=== PATIENT | male | born 1950 | race Caucasian/White ===

== ENCOUNTER 2018-09-15 14:31 | Inpatient (IN) ==
[2018-09-15] MEDS ORDERED: MoRPHine SULFATE 4 MG/ML 1 ML CARP\\VIAL IV STA ×2 (15:18→18:01)
[2018-09-15] MEDS ORDERED: SODIUM CHLORIDE 0.9% 1000ML 2,000 ML IV ONE (15:18)
[2018-09-15] MEDS ORDERED: ONDANSETRON INJ 2 MG/ML 2 ML VIAL IV STA ×2 (15:18→18:01)
[2018-09-15 15:55] LABS: Appearance Urine Clear (Clear); Bilirubin Urine Negative (Negative); Blood Urine Negative (Negative); Color Urine Yellow; Glucose Urine UA Negative (Negative); Ketones Urine Negative (Negative); Leukocyte Esterase Urine Negative (Negative); Nitrite Urine Negative (Negative); Protein Urine Negative (Negative); Specific Gravity Urine 1.012 (1.000-1.030); Urobilinogen Urine Negative (Negative); pH Urine 5.5 (4.5-7.5)
[2018-09-15 15:55] LABS: Basophils # (auto) 0.01 K/uL (0-0.2); Basophils % (auto) 0.1 %; Eosinophils # (auto) 0.11 K/uL (0-0.5); Eosinophils % (auto) 1.1 %; Hematocrit (blood only) 33.9 % (42-52); Hemoglobin 11.8 g/dL (14.0-18.0); Immature Granulocytes # (auto) 0.03 K/uL (0.00-0.02); Immature Granulocytes % (auto) 0.3 %; Lymphocytes % (auto) 12.5 %; Mean Corpuscular Hgb Conc 34.8 g/dL (32-36); Mean Corpuscular Volume 90.4 fL (80-100); Mean Platelet Volume 8.9 fL (7.4-10.4); Monocytes # (auto) 0.98 K/uL (0.11-0.59); Monocytes % (auto) 9.5 %; Neutrophils # (auto) 7.94 K/uL (1.4-6.5); Neutrophils % (auto) 76.5 %; Platelet Count 318 K/uL (130-400); RDW Coefficient of Variation 12.6 % (11.5-14.5); RDW Standard Deviation 41.8 fL (36.4-46.3); Red Blood Count 3.75 M/uL (4.7-6.1); White Blood Count 10.37 K/uL (4.8-10.8)
[2018-09-15 16:16] LABS: Albumin Globulin Ratio 0.7 (0.9-2); Albumin Level 3.4 gm/dl (3.4-5.0); Bilirubin,Total 1.1 mg/dl (0.2-1); Est GFR (African American) 40.6; Globulin 4.8 gm/dl (2.5-4.0); Total Protein 8.2 gm/dl (6.4-8.2)
--- NOTE | 2018-09-15 16:30 | Ultrasound Report ---
US renal/blad retro comp HISTORY: Nephrocalcinosis kidney stone COMPARISON: None. FINDINGS: Right kidney: Maximum dimension 13 cm. No evidence for hydronephrosis. Normal corticomedullary differ entiation and cortical thickness. Left kidney: Moderate left renal hydronephrosis and hydroureter. Possible 5 mm calculus distal left ureter. Normal corticomedullary differentiation and cortical thickness. Bladder: No bladder wall thickening. The bilateral ureteral jets were identified. IMPRESSION: 1. Moderate left renal hydronephrosis. 2. Possible 5 mm ureteral calculus distal left ureter. This possibly is at the left ureteral vesicle junction. The above report was generated using voice recognition software. It may contain grammatical, syntax or spelling errors. Electronically signed by: Richard Méndez M.D. 09/15/2018 4:29 PM
--- NOTE | 2018-09-15 16:33 | XRay Report ---
XR KUB/Abdomen 1 view CLINICAL HISTORY: l flank pain COMPARISON STUDY: No previous studies for comparison. FINDINGS: The soft tissues, psoas shadows, renal outlines and intestinal gas pattern appear normal. T here is no evidence for bowel obstruction. No abnormal abdominal calcifications are seen. IMPRESSION: Normal study. The above report was generated using voice recognition software. It may contain grammatical, syntax or spelling errors. Electronically signed by: Richard Méndez M.D. 09/15/2018 4:32 PM
[2018-09-15] MEDS ORDERED: CEFEPIME 1,000 MG in SYRINGE 0 ML IV STA (16:58)
--- NOTE | 2018-09-15 17:56 | History & Physical Report ---
Date of Service September 15, 2018 Assessment & Plan (1) Renal colic: Distal left ureter stone, 5 mm. Parenteral pain control and antiemetics as needed. Urology consultation Present on Admission?: Yes (2) Hydronephrosis: Left-sided secondary to distal left ureter stone. Urology consultation Present on Admission?: Yes (3) Acute kidney injury: Hold metformin. Hold lisinopril. Administer IV fluids. Monitor urine output. Serial lab studies Present on Admission?: Yes (4) Type 2 diabetes mellitus: Hold metformin. Diabetic diet. Sliding scale insulin coverage Present on Admission?: Yes (5) Hypertension: Hold lisinopril. Continue amlodipine and metoprolol. Present on Admission?: Yes (6) DVT prophylaxis: Lovenox subcu Present on Admission?: Yes History of Present Illness Chief Complaint: Left costovertebral angle tenderness Primary Care Provider: Lyudmila Cano MD 68-year-old male with a history of hypertension and hyperlipidemia. 15 years ago he had a kidney stone that felt like this. He has had a left discomfort for nearly a week and was evaluated previously at [facility] several days ago. His symptoms have persisted and worsened and he comes to the [facility] ED for evaluation. Renal ultrasound reveals moderate left hydronephrosis and he has evidence of a distal left ureter stone with acute kidney injury. Creatinine 1.9. The ED physician has contacted urology for consultation. He will be placed on intravenous Unasyn due to the obstruction and hydronephrosis. He does not appear to be septic. Allergies Allergy/AdvReac Type Severity Reaction Status Date / Time ciprofloxacin [From Cipro] Allergy Intermediate Hives Verified 09/15/18 15:25 Home Medications Home Medications Medication Instructions Recorded Confirmed Type amlodipine 10 mg PO QAM 09/15/18 09/15/18 History ascorbic acid (vitamin C) [Vitamin 500 mg PO QAM 09/15/18 09/15/18 History C] atorvastatin 20 mg PO 2XWK 09/15/18 09/15/18 History furosemide [Lasix] 10 mg PO QAM 09/15/18 09/15/18 History lisinopril 10 mg PO QAM 09/15/18 09/15/18 History metformin 500 mg PO QAM 09/15/18 09/15/18 History metoprolol tartrate 100 mg PO BIDM 09/15/18 09/15/18 History terazosin 2 mg PO QAM 09/15/18 09/15/18 History terazosin 4 mg PO HS 09/15/18 09/15/18 History Past Med/Surg History Medical History Hypertension (Chronic) Type 2 diabetes mellitus (Chronic) Acute kidney injury (Acute) Kidney stone No pertinent family history Surgical History No pertinent past surgical history Family History Other No pertinent family history Social History Preferred Language: Faroese Communication Ability: Effective Visual Impairment: No Limitations Hearing Ability: Normal marital status: marital status details: Current Living Situation: Family Feels Safe at Home: Yes Smoking Status: Never smoker Review of Systems Review of Systems: Constitutional-no fever or chills ENT-no blurred vision, no double vision, no epistaxis, no sore throat Respiratory-no cough, no wheezing, no shortness of breath Cardiac-no palpitations, no chest pain, no syncope GI-no nausea, vomiting, diarrhea, melena, hematochezia -no urinary retention, no urinary incontinence, no dysuria, no hematuria Musculoskeletal-no joint pain. Left costovertebral angle tenderness Skin-no bruising, no rashes, no pruritus Neuro-no isolated weakness, no paresthesia, no weakness Psych-no depression, no anxiety Physical Exam Physical Exam: General-alert and oriented x3, no fevers, no chills HEENT-head atraumatic and normocephalic, TMs intact bilaterally, pupils equal and reactive to light, extraocular muscles intact Neck-no lymphadenopathy or thyromegaly, trachea midline Chest-clear to auscultation percussion. No rales wheezing or rhonchi Cardiac-regular rate and rhythm, normal S1 and S2, no murmurs Abdomen-normal bowel sounds, nontender, no hepatosplenomegaly Musculoskeletaltenderness in the left costovertebral angle area Extremities-no cyanosis, clubbing, or edema Neuro-cranial nerves II through XII intact, motor and sensory function within normal limits, strength symmetrical 5/5, no focal deficits Psych-normal affect, normal mood Results & Data Vital Signs (Past 12 Hours) Vital Signs Temp Pulse Pulse Resp BP BP Pulse Ox 09/15/18 16:05 86 22 162/85 H 95 09/15/18 15:50 98 09/15/18 14:38 36.8 C 83 18 155/80 H 95 Laboratory Results 09/15/18 15:48 09/15/18 15:48 PG Care Time/CCT Total # of Minutes Spent Total Time Spent with Patient: Total time spent is greater than 50% in coord ination of care (as documented) at patient's floor/unit and/or counseling patient: (1) Hydronephrosis Hydronephrosis type: unspecified Qualified Code(s): N13.30 - Unspecified hydronephrosis
--- NOTE | 2018-09-15 18:16 | Emergency Department Note ---
Entered by Rebecca Tellez acting as a scribe for History of Present Illness General Chief complaint: Kidney Stone Stated complaint: KIDNEY STONE Source: patient Mode of arrival: ambulatory Limitations: no limitations History of Present Illness Onset (ago): day(s) 6 Location: left (flank) Severity: severe and similar to prior episodes Pain Consistency: + constant Maximum Pain Intensity: 5 Quality: + other (kidney stone) Associated symptoms: + other (The patient complains of left flank pain. The patient denies abdominal pain.); no chest pain and no fever/chills (The patient denies fevers. ) The patient is a 68 year old male with a history of kidney stone, diabetes and hypertension who presents to the ED with complaints of a constant kidney stone that onset 6 days ago. The patient presents with his . The patient states t hat he has was diagnosed via CT with a left sided 3 mm kidney stone in [place] last week. The patient complains of severe left flank pain that is similar to his past kidney stone. The patient denies fevers over 104 degrees, abdominal pain, and chest pain. He notes that he called urology today and was told that they are not accepting new patients. He reports that he only has 1 pain pill left. He notes that the pain has worsened slightly today. No other exacerbating or remitting factors. Home Medications Home Medications Medication Instructions Recorded Confirmed Type amlodipine 10 mg PO QAM 09/15/18 09/15/18 History ascorbic acid (vitamin C) [Vitamin 500 mg PO QAM 09/15/18 09/15/18 History C] atorvastatin 20 mg PO 2XWK 09/15/18 09/15/18 History furosemide [Lasix] 10 mg PO QAM 09/15/18 09/15/18 History lisinopril 10 mg PO QAM 09/15/18 09/15/18 History metformin 500 mg PO QAM 09/15/18 09/15/18 History metoprolol tartrate 100 mg PO BIDM 09/15/18 09/15/18 History terazosin 2 mg PO QAM 09/15/18 09/15/18 History terazosin 4 mg PO HS 09/15/18 09/15/18 History Allergies Allergy/AdvReac Type Severity Reaction Status Date / Time ciprofloxacin [From Cipro] Allergy Intermediate Hives Verified 09/15/18 15:25 Past Med/Surg History Medical History Hypertension (Chronic) Type 2 diabetes mellitus (Chronic) Acute kidney injury (Acute) Kidney stone No pertinent family history Surgical History No pertinent past surgical history (Acute) Family History Other No pertinent family history Social History Preferred Language: [place] Communication Ability: Effective Visual Impairment: No Limitations Hearing Ability: Normal marital status: marital status details: Current Living Situation: Family Feels Safe at Home: Yes Smoking Status: Never smoker Review of Systems See HPI for pertinent positives & negatives. and A total of 10 systems reviewed and were otherwise negative Physical Exam Vital Signs Vital Signs - 24 hr 09/15/18 14:38 09/15/18 15:50 09/15/18 16:05 Temperature 36.8 C Temperature Source Oral Sepsis Recent Fever Within 48 Hours No Sepsis New/Unexplained Change in Mental Status No Sepsis Action Taken by Nursing No Action Required Pulse Rate 83 Pulse Rate [Finger] 86 Respiratory Rate 18 22 Respiratory Effort / Characteristics Non-Labored Respiratory Depth Normal Blood Pressure 155/80 H Blood Pressure [Left Arm] 162/85 H Blood Pressure Mean 105 Blood Pressure Mean [Left Arm] 110 Pulse Oximetry 95 98 95 Oxygen Delivery Method Room Air Room Air Room Air GENERAL: Lying in bed, mild distress, holding left flank. EYE EXAM: Normal conjunctiva. OROPHARYNX: no exudate, no erythema, lips, buccal mucosa, and tongue normal and mucous membranes are moist NECK: supple, no nuchal rigidity, no adenopathy, non-tender LUNGS: Clear to auscultation. Normal chest wall mechanics HEART: no murmurs, S1 normal and S2 normal ABDOMEN: abdomen soft, minimal tenderness to left flank, normo-active bowel sounds, no masses, no rebound or guarding. BACK: Back is symmetrical on inspection and there is no deformity, no midline tenderness, no CVA tenderness. SKIN: no rashes and no bruising UPPER EXTREMITIES: upper extremities are grossly normal. LOWER EXTREMITIES: No pitting edema. NEURO EXAM: Normal sensorium, cranial nerves II-XII grossly intact, normal speech, no gross weakness of arms, no gross weakness of legs. Course 1506: Past medical records reviewed. The patient was evaluated in room C01B. A complete history and physical examination was performed. 1703: Call out to urology. 1717: I reviewed the patient's case with Dr. Albin Conner [facility]. 1723: Upon reevaluation, the patient is feeling better. I discussed the findings and the treatment plan with the patient. He verbalizes agreement and understanding. He was discharged home. 1730: I reviewed the patient's case with Dr. Jasmin Kim - [facility]. He will evaluate the patient for further management. Consultations Consultation #1: 1717: I reviewed the patient's case with Dr. [facility]bin [facility]. Time: 17:17 Consultation #2: 1730: I reviewed the patient's case with Dr. Jasmin Kim - [facility]. He will evaluate the patient for further management. Time: 17:30 Administered Medications Discontinued Medications Sodium Chloride (Nss 1000ml) 2,000 mls @ 999 mls/hr IV .Q2H1M ONE Stop: 09/15/18 17:18 Last Admin: 09/15/18 16:01 Dose: 999 mls/hr Documented by: [id number] Morphine Sulfate (Morphine Sulfate) 4 mg IV NOW STA Stop: 09/15/18 15:19 Last Admin: 09/15/18 16:00 Dose: 4 mg Documented by: [id number] Ondansetron HCl (Zofran) 4 mg IV NOW STA Stop: 09/15/18 15:19 Last Admin: 09/15/18 16:00 Dose: 4 mg Documented by: [id number] Medical Decision Making Differential Diagnosis Differential diagnosis Renal colic, appendicitis, diverticulitis, mesenteric ischemia, aortic pathology, infections, inflammatory bowel disease, PUD, biliary pathology, UTI, as well as others were entertained. Medical Records Attestation: I reviewed the patient's medical records. Home Medications Current Medication List: was personally reviewed by me Laboratory Data Attestation: I reviewed the patient's lab results. Result diagrams: 09/15/18 15:48 09/15/18 15:48 Lab Results 09/15/18 09/15/18 09/15/18 Range/Units 15:33 15:48 15:48 WBC 10.37 (4.8-10.8) K/uL RBC 3.75 L (4.7-6.1) M/uL Hgb 11.8 L (14.0-18.0) g/dL Hct 33.9 L (42-52) % MCV 90.4 (80-100) fL MCH 31.5 (25-34) pg MCHC 34.8 (32-36) g/dL RDW Std Deviation 41.8 (36.4-46.3) fL RDW Coeff of [place] 12.6 (11.5-14.5) % Plt Count 318 (130-400) K/uL MPV 8.9 (7.4-10.4) fL Immature Gran % (Auto) 0.3 % Neut % (Auto) 76.5 % Lymph % (Auto) 12.5 % [place] % (Auto) 9.5 % Eos % (Auto) 1.1 % Baso % (Auto) 0.1 % Immature Gran # (Auto) 0.03 H (0.00-0.02) K/uL Neut # (Auto) 7.94 H (1.4-6.5) K/uL Lymph # (Auto) 1.30 (1.2-3.4) K/uL [place] # (Auto) 0.98 H (0.11-0.59) K/uL Eos # (Auto) 0.11 (0-0.5) K/uL Baso # (Auto) 0.01 (0-0.2) K/uL Sodium 138 (136-145) mmol/L Potassium (3.5-5.1) mmol/L Chloride 102 (98-107) mmol/L Carbon Dioxide 27 (21-32) mmol/L Anion Gap 9.0 (3-11) BUN 25 H (7-18) mg/dl Creatinine 1.92 H (0.6-1.4) mg/dl Est Cr Clr Drug Dosing 42.0 ml/min Est GFR ( Amer) 40.6 Est GFR (Non-Af Amer) 35.0 BUN/Creatinine Ratio 13.0 (10-20) Glucose 108 H (70-99) mg/dl Calcium 9.0 (8.5-10.1) mg/dl Total Bilirubin 1.1 H (0.2-1) mg/dl AST (15-37) U/L ALT 42 (12-78) U/L Alkaline Phosphatase 89 (45-117) U/L Total Protein 8.2 (6.4-8.2) gm/dl Albumin 3.4 (3.4-5.0) gm/dl Globulin 4.8 H (2.5-4.0) gm/dl Albumin/Globulin Ratio 0.7 L (0.9-2) Lipase 66 L (73-393) U/L Urine Color Yellow Urine Appearance Clear (Clear) Urine pH 5.5 (4.5-7.5) Ur Specific [place] 1.012 (1.000-1.030) Urine Protein Negative (Negative) Urine Glucose (UA) Negative (Negative) Urine Ketones Negative (Negative) Urine Blood Negative (Negative) Urine Nitrite Negative (Negative) Urine Bilirubin Negative (Negative) Urine Urobilinogen Negative (Negative) Ur Leukocyte Esterase Negative (Negative) Imaging Data Radiologist's Impression: Radiology results as stated below per my review and the radiologist's interpretation: US renal/blad retro comp HISTORY: Nephrocalcinosis kidney stone COMPARISON: None. FINDINGS: Right kidney: Maximum dimension 13 cm. No evidence for hydronephrosis. Normal corticomedullary differentiation and cortical thickness. Left kidney: Moderate left renal hydronephrosis and hydroureter. Possible 5 mm calculus distal left ureter. Normal corticomedullary differentiation and cortical thickness. Bladder: No bladder wall thickening. The bilateral ureteral jets were identifi ed. IMPRESSION: 1. Moderate left renal hydronephrosis. 2. Possible 5 mm ureteral calculus distal left ureter. This possibly is at the left ureteral vesicle junction. The above report was generated using voice recognition software. It may contain grammatical, syntax or spelling errors. Electronically signed by: Richard Méndez M.D. 09/15/2018 4:29 PM Dictated: 09/15/18 1627 Transcribed: 09/15/18 1627 XR KUB/Abdomen 1 view CLINICAL HISTORY: l flank pain COMPARISON STUDY: No previous studies for comparison. FINDINGS: The soft tissues, psoas shadows, renal outlines and intestinal gas pattern appear normal. There is no evidence for bowel obstruction. No abnormal abdominal calcifications are seen. IMPRESSION: Normal study. The above report was generated using voice recognition software. It may contain grammatical, syntax or spelling errors. Electronically signed by: Richard Méndez M.D. 09/15/2018 4:32 PM Dictated: 09/15/18 1631 Transcribed: 09/15/18 1631 Blood Pressure Blood Pressure Findings: Elevated blood pressure Blood Pressure Disposition: further management by hospitalist MIGUEL Narrative Patient is a 68-year-old male who presents the ER with past medical history of hypertension diabetes for left flank pain. Upon review of his outside records that shows he has a 3 mm distal left ureteral stone with fair amount of hydronephrosis. He notes that his pain has been slightly worsening. He has been unable to eat and drink much for the past couple days secondary to this. Vitals show that he is slightly hypertensive. IV was established blood work was obtained. Labs show no significant leukocytosis but mild anemia 11,000. BMP with a BUN of 25 and a creatinine of 1.92 up from a baseline of 1.0-1.1. Last creatinine 6 days ago was 1.1. Do favor the elevation in BUN and creatinine is likely secondary duration. T bili was slightly elevated 1.1. LFTs and lipase were unremarkable. UA without infection. Ultrasound shows a left distal ureteral stone with moderate amount of hydronephrosis measuring about 5 mm. KUB was reviewed. Patient was given IV fluids and IV narcotics along with IV Zofran. Discussed with urology as creatinine has increased from baseline of 1.0-1.1 to now 1.92. After discussion with patient felt was reasonable to watch him overnight. Discussed with the hospitalist and patient will be observed for acute kidney injury likely secondary to Naprosyn which was prescribed from [place] in combination with dehydration 2/2 renal colic. Impression & Plan Hydronephrosis, Renal colic, Type 2 diabetes mellitus, No pertinent past surgical history Discharge Plan Visit Data Chief Complaint: Kidney Stone Stated Complaint: KIDNEY STONE ED Provider: Juan M Anderson Discharge Problem: Hydronephrosis, Renal colic, Type 2 diabetes mellitus, No pertinent past surgical history Patient Disposition: Being Evaluated by Hospitalist Forms Stand Alone Forms: My [facility] Prescriptions Prescriptions: No Action metformin 500 mg Tablet 500 mg PO QAM RF: 0 atorvastatin 20 mg Tablet 20 mg PO 2XWK RF: 0 terazosin 2 mg Capsule 2 mg PO QAM RF: 0 terazosin 2 mg Capsule 4 mg PO HS RF: 0 amlodipine 10 mg Tablet 10 mg PO QAM RF: 0 lisinopril 10 mg Tablet 10 mg PO QAM RF: 0 ascorbic acid (vitamin C) [Vitamin C] 500 mg Tablet,Chewable 500 mg PO QAM RF: 0 metoprolol tartrate 50 mg Tablet 100 mg PO BIDM RF: 0 furosemide [Lasix] 20 mg Tablet 10 mg PO QAM RF: 0 Referrals Referrals: Lyudmila Cano MD [Primary Care Provider] - The scribe's documentation has been prepared under my direction and personally reviewed by me in its entirety. I confirm that the note above accurately reflects all work, treatment, procedures, and medical decision making performed by me.
[2018-09-15] MEDS ORDERED: ACETAMINOPHEN 325 MG TAB PO PRN (20:17)
[2018-09-15] MEDS ORDERED: ALUMINUM/MAGNESIUM SUSP 30 ML UDC PO PRN (20:17)
[2018-09-15] MEDS ORDERED: MoRPHine SULFATE 2 MG/ML CARP IV PRN (20:17)
[2018-09-15] MEDS ORDERED: ONDANSETRON INJ 2 MG/ML 2 ML VIAL IV PRN (20:17)
[2018-09-15] MEDS: SODIUM CHLORIDE 0.9% 1000ML 1,000 ML IV SCH (20:25)
[2018-09-15] MEDS ORDERED: GLUCAGON FOR INJ 1 MG VIAL IM PRN (21:00)
[2018-09-15] MEDS ORDERED: GLUCOSE 10 TABS/TUBE PO PRN (21:00)
[2018-09-15] MEDS ORDERED: DEXTROSE 50% 50 ML SYRINGE IV PRN (21:00)
[2018-09-15] MEDS ORDERED: CARBOHYDRATES FOR HYPOGLYCEMIA PO PRN (21:00)
[2018-09-15] MEDS ORDERED: GLUCOSE 40% GEL 15 GM TUBE PO PRN (21:00)
[2018-09-15 21:21] LABS: Prothrombin Time 10.3 Seconds (9.0-12.0)
[2018-09-15] MEDS ORDERED: ENOXAPARIN INJ 40 MG/0.4 ML SYR SQ SCH (22:00)
[2018-09-15] MEDS: TERAZOSIN HCL 1 MG CAP PO SCH (22:04)
[2018-09-15] MEDS: TAMSULOSIN HCL 0.4 MG CAP PO SCH (22:04)
[2018-09-15] MEDS: AMPICILLIN/SULBACTAM SOD 1,500 MG in 0.9 % SODIUM CHLORIDE 100 ML IV SCH (22:16)
[2018-09-15] MEDS: INSULIN ASPART 100 UNITS/ML 3 ML PEN SC SCH (22:24)
[2018-09-15] MEDS: METOPROLOL TARTRATE 50 MG TAB PO SCH (22:33)
[2018-09-16 00:20] LABS: Appearance Urine Clear (Clear); Bilirubin Urine Negative (Negative); Blood Urine Negative (Negative); Color Urine Yellow; Glucose Urine UA Negative (Negative); Ketones Urine Negative (Negative); Leukocyte Esterase Urine Negative (Negative); Nitrite Urine Negative (Negative); Protein Urine Negative (Negative); Specific Gravity Urine 1.016 (1.000-1.030); Urobilinogen Urine Negative (Negative)
[2018-09-16] MEDS: AMPICILLIN/SULBACTAM SOD 1,500 MG in 0.9 % SODIUM CHLORIDE 100 ML IV SCH ×2 (03:41→10:13)
[2018-09-16] MEDS: SODIUM CHLORIDE 0.9% 1000ML 1,000 ML IV SCH ×3 (05:35→21:40)
[2018-09-16] MEDS ORDERED: MoRPHine SULFATE 2 MG/ML CARP IV STA (06:18)
[2018-09-16 07:38] LABS: Basophils # (auto) 0.03 K/uL (0-0.2); Basophils % (auto) 0.3 %; Eosinophils # (auto) 0.15 K/uL (0-0.5); Eosinophils % (auto) 1.6 %; Hematocrit (blood only) 30.2 % (42-52); Hemoglobin 10.3 g/dL (14.0-18.0); Immature Granulocytes # (auto) 0.04 K/uL (0.00-0.02); Immature Granulocytes % (auto) 0.4 %; Lymphocytes # (auto) 1.66 K/uL (1.2-3.4); Lymphocytes % (auto) 17.9 %; Mean Corpuscular Hgb Conc 34.1 g/dL (32-36); Mean Corpuscular Volume 90.7 fL (80-100); Mean Platelet Volume 8.7 fL (7.4-10.4); Monocytes % (auto) 8.6 %; Neutrophils # (auto) 6.59 K/uL (1.4-6.5); Neutrophils % (auto) 71.2 %; Platelet Count 277 K/uL (130-400); RDW Coefficient of Variation 12.9 % (11.5-14.5); RDW Standard Deviation 42.8 fL (36.4-46.3); Red Blood Count 3.33 M/uL (4.7-6.1); White Blood Count 9.27 K/uL (4.8-10.8)
[2018-09-16 08:17] LABS: BUN Creatinine Ratio 15.1 (10-20); Creatinine Clr Calc Pharmacy 45.4 ml/min; Est GFR (African American) 43.8; Est GFR (Non-African American) 37.8
[2018-09-16] MEDS ORDERED: MoRPHine SULFATE 4 MG/ML 1 ML CARP\\VIAL IV PRN (08:31)
--- NOTE | 2018-09-16 08:31 | Urology Consultation ---
Date of Consultation September 16, 2018 Assessment & Plan (1) Hydronephrosis: (2) Renal colic: 68yo M with obstructing 3mm left distal ureteral stone, moderate hydro. First noted on CT performed in [place] on 09/09. Repeat Renal US does show progression of hydronephrosis, stone noted near UVJ. NO visibility on KUB. Cr elevated to 1.91 upon admission, improved slightly to 1.8 with hydration. Pain currently controlled with IV pain control, rating 5/10 now. Will increase pain control regimen, currently has morphine 2mg available q8h - will increase to 4mg q4h PRN, with PO options as well. Avoid toradol due to elevated Cr, slightly improved today with hydration. Nontoxic, afebrile. Given regular diet by primary team, discussed concern with this should pt develop worsening symptoms throughout the day -possess risk for aspiration. Pt understands, feels he can continue max medical therapy today then reassess in AM. Continue IVFs, flomax. Strain all urine. Okay to convert to prophylactic PO abx per primary team . NPO at IN for possible surgical intervention in AM. Dr. Kamara made aware and agreeable to current plan of care. Please contact our service urgently if patient develops fever >101F, intractable pain or vomiting. Thank you for allowing us to participate in the acute care of Mr. Aguilar. We will continue to follow with primary team. History of Present Illness Reason for Consultation: obstructing stone, renal colic Requesting Physician: Dr. Sue Attending Physician: Grace Sue MD History of Present Illness 68yo M with hx DMII and HTN, presents to [facility] for ongoing Left flank pain. Diagnosed with 3mm left distal ureteral stone on 09/09 by [facility]. Pt sent home with flomax and pain control. Describing pain as left flank, radiating to abdomen, "burning sensation". No LUTS, no hematuria. Denies fever/chills/n/v. He did experience extreme nausea 1-2days prior to admission. CT A/P report from [facility] reviewed on 09/09, images not available. States he has distal left ureteral stone, mild hydro; few nonobstructing right and left renal calculi, largest calculi noted within superior pole of right kidney, ~5mm. Most recent stone prior this was 15 years ago, spontaneous passage. Unsure of laterality. Was unable to collect for analysis. Allergies Allergy/AdvReac Type Severity Reaction Status Date / Time ciprofloxacin [From Cipro] Allergy Intermediate Hives Verified 09/15/18 15:25 Home Medications Home Medications Medication Instructions Recorded Confirmed Type amlodipine 10 mg PO QAM 09/15/18 09/15/18 History ascorbic acid (vitamin C) [Vitamin 500 mg PO QAM 09/15/18 09/15/18 History C] atorvastatin 20 mg PO 2XWK 09/15/18 09/15/18 History furosemide [Lasix] 10 mg PO QAM 09/15/18 09/15/18 History lisinopril 10 mg PO QAM 09/15/18 09/15/18 History metformin 500 mg PO QAM 09/15/18 09/15/18 History metoprolol tartrate 100 mg PO BIDM 09/15/18 09/15/18 History terazosin 2 mg PO QAM 09/15/18 09/15/18 History terazosin 4 mg PO HS 09/15/18 09/15/18 History Patient History Medical History Hypertension (Chronic) Type 2 diabetes mellitus (Chronic) Acute kidney injury (Acute) Kidney stone No pertinent family history Surgical History No pertinent past surgical history (Acute) Family History Other No pertinent family history Social History Preferred Language: Mongolian Communication Ability: Effective Visual Impairment: No Limitations Hearing Ability: Normal Jewel Grinder Required: No Beliefs That Will Affect Care: Buddhism Buddhism Beliefs: Jehova's Witness marital status: marital status details: Current Living Situation: Spouse and Family Other Information That Helps Us Care for You: Yes (Sx rt rotator cuff (01/16). Sx left meniscus (2010)) Feels Safe at Home: Yes Safety Concerns: Feels Safe At This Time Smoking Status: Never smoker Hx Alcohol Use: Yes Alcohol type: beer Hx Substance Use: No Review of Systems Constitutional: no fever and no chills Eyes: no problem reported Ear, Nose, Mouth, Throat: no ear pain Respiratory: no cough Cardiovascular: no chest pain Gastrointestinal: no abdominal pain, no nausea and no vomiting Genitourinary: no dysuria, no urinary hesitancy, no nocturia and no hematuria Musculoskeletal: no myalgia Integumentary: no acne and no lesions Neurologic: no paralysis and no numbness Psychiatric: no hopelessness Endocrine: no polydipsia and no polyphagia Hematologic / Lymphatic: no coagulopathy Allergy / Immunological: no lip swelling Physical Exam Constitutional: no acute distress Eyes: no nystagmus ENMT: Ears: no TM abnormality Neck: trachea midline Respiratory: no respiratory distress and does not use accessory muscles Cardiovascular: Vessels: no JVD Chest (Breasts): Chest: no mass Gastrointestinal (Abdomen): Inspection/Auscultation: abdomen not distended and no abdominal edema Percussion/Palpation: abdomen soft; abdomen nontender Musculoskeletal: Head/Neck/Chest: normocephalic and head atraumatic Skin: no rashes and no ulcers Neurologic: CN's II-XI intact bilaterally Psychiatric: Orientation: alert and oriented x 3 Genitourinary: + CVA tenderness (left side) Lymphatic: no cervical or axillary lymphadenopathy Results & Data Vital Signs (Past 12 Hours) Vital Signs Temp Pulse Pulse Resp BP Pulse Ox 09/16/18 07:51 37.1 C 65 17 146/78 H 95 09/15/18 22:50 37.0 C 75 16 153/77 H 91 Laboratory Results Laboratory Results - last 48 hr 09/15/18 09/15/18 09/15/18 15:33 15:48 15:48 WBC 10.37 RBC 3.75 L Hgb 11.8 L Hct 33.9 L MCV 90.4 MCH 31.5 MCHC 34.8 RDW Std Deviation 41.8 RDW Coeff of Alba 12.6 Plt Count 318 MPV 8.9 Immature Gran % (Auto) 0.3 Neut % (Auto) 76.5 Lymph % (Auto) 12.5 [place] % (Auto) 9.5 Eos % (Auto) 1.1 Baso % (Auto) 0.1 Immature Gran # (Auto) 0.03 H Neut # (Auto) 7.94 H Lymph # (Auto) 1.30 [place] # (Auto) 0.98 H Eos # (Auto) 0.11 Baso # (Auto) 0.01 PT INR Sodium 138 Potassium Chloride 102 Carbon Dioxide 27 Anion Gap 9.0 BUN 25 H Creatinine 1.92 H Est Cr Clr Drug Dosing 42.0 Est GFR ( Amer) 40.6 Est GFR (Non-Af Amer) 35.0 BUN/Creatinine Ratio 13.0 Glucose 108 H POC Glucose Calcium 9.0 Total Bilirubin 1.1 H AST ALT 42 Alkaline Phosphatase 89 Total Protein 8.2 Albumin 3.4 Globulin 4.8 H Albumin/Globulin Ratio 0.7 L Lipase 66 L Urine Color Yellow Urine Appearance Clear Urine pH 5.5 Ur Specific [place] 1.012 Urine Protein Negative Urine Glucose (UA) Negative Urine Ketones Negative Urine Blood Negative Urine Nitrite Negative Urine Bilirubin Negative Urine Urobilinogen Negative Ur Leukocyte Esterase Negative 09/15/18 09/15/18 09/15/18 15:48 20:19 23:50 WBC RBC Hgb Hct MCV MCH MCHC RDW Std Deviation RDW Coeff of [place]ba Plt Count MPV Immature Gran % (Auto) Neut % (Auto) Lymph % (Auto) [place] % (Auto) Eos % (Auto) Baso % (Auto) Immature Gran # (Auto) Neut # (Auto) Lymph # (Auto) [place] # (Auto) Eos # (Auto) Baso # (Auto) PT 10.3 INR 1.0 Sodium Potassium Chloride Carbon Dioxide Anion Gap BUN Creatinine Est Cr Clr Drug Dosing Est GFR ( Amer) Est GFR (Non-Af Amer) BUN/Creatinine Ratio Glucose POC Glucose 151 H Calcium Total Bilirubin AST ALT Alkaline Phosphatase Total Protein Albumin Globulin Albumin/Globulin Ratio Lipase Urine Color Yellow Urine Appearance Clear Urine pH 5.0 Ur Specific [place] 1.016 Urine Protein Negative Urine Glucose (UA) Negative Urine Ketones Negative Urine Blood Negative Urine Nitrite Negative Urine Bilirubin Negative Urine Urobilinogen Negative Ur Leukocyte Esterase Negative 09/16/18 09/16/18 09/16/18 07:03 07:03 08:27 WBC 9.27 RBC 3.33 L Hgb 10.3 L Hct 30.2 L MCV 90.7 MCH 30.9 MCHC 34.1 RDW Std Deviation 42.8 RDW Coeff of Alba 12.9 Plt Count 277 MPV 8.7 Immature Gran % (Auto) 0.4 Neut % (Auto) 71.2 Lymph % (Auto) 17.9 [place] % (Auto) 8.6 Eos % (Auto) 1.6 Baso % (Auto) 0.3 Immature Gran # (Auto) 0.04 H Neut # (Auto) 6.59 H Lymph # (Auto) 1.66 [place] # (Auto) 0.80 H Eos # (Auto) 0.15 Baso # (Auto) 0.03 PT INR Sodium 138 Potassium 4.0 Chloride 105 Carbon Dioxide 27 Anion Gap 6.0 BUN 27 H Creatinine 1.80 H Est Cr Clr Drug Dosing 45.4 Est GFR ( Amer) 43.8 Est GFR (Non-Af Amer) 37.8 BUN/Creatinine Ratio 15.1 Glucose 95 POC Glucose 98 Calcium 8.0 L Total Bilirubin AST ALT Alkaline Phosphatase Total Protein Albumin Globulin Albumin/Globulin Ratio Lipase Urine Color Urine Appearance Urine pH Ur Specific [place] Urine Protein Urine Glucose (UA) Urine Ketones Urine Blood Urine Nitrite Urine Bilirubin Urine Urobilinogen Ur Leukocyte Esterase (1) Hydronephrosis Hydronephrosis type: unspecified Qualified Code(s): N13.30 - Unspecified hydronephrosis
[2018-09-16] MEDS ORDERED: MoRPHine SULFATE 2 MG/ML CARP IV PRN (08:32)
[2018-09-16] MEDS ORDERED: OXYCODONE HCL IR 5 MG TAB (IMMEDIATE RELEASE) PO PRN ×2 (08:33→08:34)
[2018-09-16] MEDS: TERAZOSIN HCL 1 MG CAP PO SCH ×2 (08:38→21:39)
[2018-09-16] MEDS: AMLODIPINE BESYLATE 5 MG TAB PO SCH (08:44)
[2018-09-16] MEDS: ASCORBIC ACID 500 MG TAB PO SCH (08:44)
[2018-09-16] MEDS: TAMSULOSIN HCL 0.4 MG CAP PO SCH ×2 (08:44→21:38)
[2018-09-16] MEDS: INSULIN ASPART 100 UNITS/ML 3 ML PEN SC SCH ×4 (08:59→22:11)
[2018-09-16] MEDS: METOPROLOL TARTRATE 50 MG TAB PO SCH ×2 (09:08→16:26)
--- NOTE | 2018-09-16 13:00 | Hospitalist Progress Note ---
Date of Service September 16, 2018 Assessment & Plan (1) Renal calculi: - Presented with renal colic; US with 5 mm distal left ureter stone at left UVJ. - U/a was negative on admission. - Will strain all urine. - Keflex for empiric coverage in setting of obstruction. - NS at 125 cc/hr; NPO after midnight for procedure. - continue Flomax, but was previously on Terazosin most likely for HTN--> should not be on both moving forward but if has stent placed tomorrow, could dc Flomax- BPs not low at this time - Oxycodone and Morphine prn pain. - Urology consulted, may require procedure on 09/17 if no improvement. (2) Hydronephrosis: - Left sided, secondary to stone. (3) Acute kidney injury: - Creatinine increased to 1.9 on admission, likely post renal related to stone. - Will continue to monitor -- IV fluids at 125 cc/hr. - Holding home Metformin and Lisinopril. (4) BPH (benign prostatic hyperplasia): - Flomax added this admission for stone and was already on Terazosin. (5) Type 2 diabetes mellitus: - Holding home Metformin. - No recent A1C documented -- will order in the morning. - SSI coverage -- BG has been well controlled. (6) Hypertension: - Continue Amlodipine and Metoprolol; holding Lisinopril. -continue terazosin (7) HLD (hyperlipidemia): - Continue statin as prescribed. (8) Anemia: - Likely related to IV fluids, diluational. - Monitor CBC qAM. (9) DVT prophylaxis: - SCDs; holding Lovenox for possible procedure on 09/17/18. Dispo: Med/surg; discharge pending improvement in renal colic. Supervising Physician Co-Signing Physician Notes PA Supervision Note: I did not personally see or examine the patient today, but I verified all rodriguez points of SAAR Gracia's assessment and plan with the following exceptions/additions: None Subjective Pt. is doing well overall. Pain was resolved following admission but reoccurred this morning -- pain was temporary but rated as severe. Pain was located on left side, flank region. Denies chest pain, SOB, hematuria or dysuria. Review of Systems Review of Systems: All systems reviewed & are unremarkable except as noted in HPI & below Constitutional: no fever, no chills, no fatigue, no weakness and no anorexia Respiratory: no cough, no dyspnea, no dyspnea on exertion and no wheezing Cardiovascular: no chest pain, no palpitations and no edema Gastrointestinal: no abdominal pain, no nausea, no vomiting, no constipation and no diarrhea/loose stools Genitourinary: + flank pain (Left sided ); no dysuria, no difficulty urinating and no hematuria Musculoskeletal: no back pain and no joint pain Integumentary: no non-healing lesions Physical Exam Physical Exam: General: Resting comfortably HEENT: NC/AT; PERRLA with EOMI; [place] conjunctiva, MMM. No erythema of posterior pharynx Neck: Supple and nontender Cardiac: RRR Lungs: CTA bilaterally Abdomen: Bowel normoactive X 4; Nontender to palpation Extremities: Warm. No edema present Neuro: No focal weakness Skin: No rash Results & Data Vital Signs (Past 12 Hours) Vital Signs Temp Pulse Resp BP Pulse Ox 09/16/18 07:51 37.1 C 65 17 146/78 H 95 Laboratory Results 09/16/18 09/16/18 09/16/18 Range/Units 12:04 08:27 07:03 WBC (4.8-10.8) K/uL RBC (4.7-6.1) M/uL Hgb (14.0-18.0) g/dL Hct (42-52) % MCV (80-100) fL MCH (25-34) pg MCHC (32-36) g/dL RDW Std Deviation (36.4-46.3) fL RDW Coeff of Alba (11.5-14.5) % Plt Count (130-400) K/uL MPV (7.4-10.4) fL Immature Gran % (Auto) % Neut % (Auto) % Lymph % (Auto) % [place] % (Auto) % Eos % (Auto) % Baso % (Auto) % Immature Gran # (Auto) (0.00-0.02) K/uL Neut # (Auto) (1.4-6.5) K/uL Lymph # (Auto) (1.2-3.4) K/uL [place] # (Auto) (0.11-0.59) K/uL Eos # (Auto) (0-0.5) K/uL Baso # (Auto) (0-0.2) K/uL PT (9.0-12.0) Seconds INR (0.9-1.1) Sodium 138 (136-145) mmol/L Potassium 4.0 (3.5-5.1) mmol/L Chloride 105 (98-107) mmol/L Carbon Dioxide 27 (21-32) mmol/L Anion Gap 6.0 (3-11) BUN 27 H (7-18) mg/dl Creatinine 1.80 H (0.6-1.4) mg/dl Est Cr Clr Drug Dosing 45.4 ml/min Est GFR ( Amer) 43.8 Est GFR (Non-Af Amer) 37.8 BUN/Creatinine Ratio 15.1 (10-20) Glucose 95 (70-99) mg/dl POC Glucose 108 H 98 (70-99) Calcium 8.0 L (8.5-10.1) mg/dl Total Bilirubin (0.2-1) mg/dl AST (15-37) U/L ALT (12-78) U/L Alkaline Phosphatase (45-117) U/L Total Protein (6.4-8.2) gm/dl Albumin (3.4-5.0) gm/dl Globulin (2.5-4.0) gm/dl Albumin/Globulin Ratio (0.9-2) Lipase (73-393) U/L Urine Color Urine Appearance (Clear) Urine pH (4.5-7.5) Ur Specific [place] (1.000-1.030) Urine Protein (Negative) Urine Glucose (UA) (Negative) Urine Ketones (Negative) Urine Blood (Negative) Urine Nitrite (Negative) Urine Bilirubin (Negative) Urine Urobilinogen (Negative) Ur Leukocyte Esterase (Negative) 09/16/18 09/15/18 09/15/18 Range/Units 07:03 23:50 20:19 WBC 9.27 (4.8-10.8) K/uL RBC 3.33 L (4.7-6.1) M/uL Hgb 10.3 L (14.0-18.0) g/dL Hct 30.2 L (42-52) % MCV 90.7 (80-100) fL MCH 30.9 (25-34) pg MCHC 34.1 (32-36) g/dL RDW Std Deviation 42.8 (36.4-46.3) fL RDW Coeff of Alba 12.9 (11.5-14.5) % Plt Count 277 (130-400) K/uL MPV 8.7 (7.4-10.4) fL Immature Gran % (Auto) 0.4 % Neut % (Auto) 71.2 % Lymph % (Auto) 17.9 % [place] % (Auto) 8.6 % Eos % (Auto) 1.6 % Baso % (Auto) 0.3 % Immature Gran # (Auto) 0.04 H (0.00-0.02) K/uL Neut # (Auto) 6.59 H (1.4-6.5) K/uL Lymph # (Auto) 1.66 (1.2-3.4) K/uL [place] # (Auto) 0.80 H (0.11-0.59) K/uL Eos # (Auto) 0.15 (0-0.5) K/uL Baso # (Auto) 0.03 (0-0.2) K/uL PT (9.0-12.0) Seconds INR (0.9-1.1) Sodium (136-145) mmol/L Potassium (3.5-5.1) mmol/L Chloride (98-107) mmol/L Carbon Dioxide (21-32) mmol/L Anion Gap (3-11) BUN (7-18) mg/dl Creatinine (0.6-1.4) mg/dl Est Cr Clr Drug Dosing ml/min Est GFR ( Amer) Est GFR (Non-Af Amer) BUN/Creatinine Ratio (10-20) Glucose (70-99) mg/dl POC Glucose 151 H (70-99) Calcium (8.5-10.1) mg/dl Total Bilirubin (0.2-1) mg/dl AST (15-37) U/L ALT (12-78) U/L Alkaline Phosphatase (45-117) U/L Total Protein (6.4-8.2) gm/dl Albumin (3.4-5.0) gm/dl Globulin (2.5-4.0) gm/dl Albumin/Globulin Ratio (0.9-2) Lipase (73-393) U/L Urine Color Yellow Urine Appearance Clear (Clear) Urine pH 5.0 (4.5-7.5) Ur Specific [place] 1.016 (1.000-1.030) Urine Protein Negative (Negative) Urine Glucose (UA) Negative (Negative) Urine Ketones Negative (Negative) Urine Blood Negative (Negative) Urine Nitrite Negative (Negative) Urine Bilirubin Negative (Negative) Urine Urobilinogen Negative (Negative) Ur Leukocyte Esterase Negative (Negative) 09/15/18 09/15/18 09/15/18 Range/Units 15:48 15:48 15:48 WBC 10.37 (4.8-10.8) K/uL RBC 3.75 L (4.7-6.1) M/uL Hgb 11.8 L (14.0-18.0) g/dL Hct 33.9 L (42-52) % MCV 90.4 (80-100) fL MCH 31.5 (25-34) pg MCHC 34.8 (32-36) g/dL RDW Std Deviation 41.8 (36.4-46.3) fL RDW Coeff of Alba 12.6 (11.5-14.5) % Plt Count 318 (130-400) K/uL MPV 8.9 (7.4-10.4) fL Immature Gran % (Auto) 0.3 % Neut % (Auto) 76.5 % Lymph % (Auto) 12.5 % [place] % (Auto) 9.5 % Eos % (Auto) 1.1 % Baso % (Auto) 0.1 % Immature Gran # (Auto) 0.03 H (0.00-0.02) K/uL Neut # (Auto) 7.94 H (1.4-6.5) K/uL Lymph # (Auto) 1.30 (1.2-3.4) K/uL [place] # (Auto) 0.98 H (0.11-0.59) K/uL Eos # (Auto) 0.11 (0-0.5) K/uL Baso # (Auto) 0.01 (0-0.2) K/uL PT 10.3 (9.0-12.0) Seconds INR 1.0 (0.9-1.1) Sodium 138 (136-145) mmol/L Potassium (3.5-5.1) mmol/L Chloride 102 (98-107) mmol/L Carbon Dioxide 27 (21-32) mmol/L Anion Gap 9.0 (3-11) BUN 25 H (7-18) mg/dl Creatinine 1.92 H (0.6-1.4) mg/dl Est Cr Clr Drug Dosing 42.0 ml/min Est GFR ( Amer) 40.6 Est GFR (Non-Af Amer) 35.0 BUN/Creatinine Ratio 13.0 (10-20) Glucose 108 H (70-99) mg/dl POC Glucose (70-99) Calcium 9.0 (8.5-10.1) mg/dl Total Bilirubin 1.1 H (0.2-1) mg/dl AST (15-37) U/L ALT 42 (12-78) U/L Alkaline Phosphatase 89 (45-117) U/L Total Protein 8.2 (6.4-8.2) gm/dl Albumin 3.4 (3.4-5.0) gm/dl Globulin 4.8 H (2.5-4.0) gm/dl Albumin/Globulin Ratio 0.7 L (0.9-2) Lipase 66 L (73-393) U/L Urine Color Urine Appearance (Clear) Urine pH (4.5-7.5) Ur Specific [place] (1.000-1.030) Urine Protein (Negative) Urine Glucose (UA) (Negative) Urine Ketones (Negative) Urine Blood (Negative) Urine Nitrite (Negative) Urine Bilirubin (Negative) Urine Urobilinogen (Negative) Ur Leukocyte Esterase (Negative) 09/15/18 Range/Units 15:33 WBC (4.8-10.8) K/uL RBC (4.7-6.1) M/uL Hgb (14.0-18.0) g/dL Hct (42-52) % MCV (80-100) fL MCH (25-34) pg MCHC (32-36) g/dL RDW Std Deviation (36.4-46.3) fL RDW Coeff of Alba (11.5-14.5) % Plt Count (130-400) K/uL MPV (7.4-10.4) fL Immature Gran % (Auto) % Neut % (Auto) % Lymph % (Auto) % [place] % (Auto) % Eos % (Auto) % Baso % (Auto) % Immature Gran # (Auto) (0.00-0.02) K/uL Neut # (Auto) (1.4-6.5) K/uL Lymph # (Auto) (1.2-3.4) K/uL [place] # (Auto) (0.11-0.59) K/uL Eos # (Auto) (0-0.5) K/uL Baso # (Auto) (0-0.2) K/uL PT (9.0-12.0) Seconds INR (0.9-1.1) Sodium (136-145) mmol/L Potassium (3.5-5.1) mmol/L Chloride (98-107) mmol/L Carbon Dioxide (21-32) mmol/L Anion Gap (3-11) BUN (7-18) mg/dl Creatinine (0.6-1.4) mg/dl Est Cr Clr Drug Dosing ml/min Est GFR ( Amer) Est GFR (Non-Af Amer) BUN/Creatinine Ratio (10-20) Glucose (70-99) mg/dl POC Glucose (70-99) Calcium (8.5-10.1) mg/dl Total Bilirubin (0.2-1) mg/dl AST (15-37) U/L ALT (12-78) U/L Alkaline Phosphatase (45-117) U/L Total Protein (6.4-8.2) gm/dl Albumin (3.4-5.0) gm/dl Globulin (2.5-4.0) gm/dl Albumin/Globulin Ratio (0.9-2) Lipase (73-393) U/L Urine Color Yellow Urine Appearance Clear (Clear) Urine pH 5.5 (4.5-7.5) Ur Specific [place] 1.012 (1.000-1.030) Urine Protein Negative (Negative) Urine Glucose (UA) Negative (Negative) Urine Ketones Negative (Negative) Urine Blood Negative (Negative) Urine Nitrite Negative (Negative) Urine Bilirubin Negative (Negative) Urine Urobilinogen Negative (Negative) Ur Leukocyte Esterase Negative (Negative) PG Care Time/CCT Total # of Minutes Spent Total Time Spent with Patient: Total time spent is greater than 50% in coordination of care (as documented) at patient's floor/unit and/or counseling patient: (1) Hydronephrosis Hydronephrosis type: unspecified Qualified Code(s): N13.30 - Unspecified hydronephrosis
[2018-09-16] MEDS: cephALEXin 500 MG CAP PO SCH (21:39)
[2018-09-17] MEDS ORDERED: Nursing to Pharmacy Communication ONE (04:04)
[2018-09-17] MEDS ORDERED: INSULIN ASPART 100 UNITS/ML 3 ML PEN SC SCH ×2 (06:00→11:30)
[2018-09-17] MEDS: SODIUM CHLORIDE 0.9% 1000ML 1,000 ML IV SCH (06:21)
[2018-09-17 07:23] LABS: Basophils # (auto) 0.02 K/uL (0-0.2); Basophils % (auto) 0.2 %; Eosinophils # (auto) 0.23 K/uL (0-0.5); Eosinophils % (auto) 2.5 %; Hematocrit (blood only) 30.4 % (42-52); Hemoglobin 10.5 g/dL (14.0-18.0); Immature Granulocytes # (auto) 0.08 K/uL (0.00-0.02); Immature Granulocytes % (auto) 0.9 %; Lymphocytes # (auto) 1.73 K/uL (1.2-3.4); Lymphocytes % (auto) 19.1 %; Mean Corpuscular Hgb Conc 34.5 g/dL (32-36); Mean Corpuscular Volume 91.6 fL (80-100); Mean Platelet Volume 8.5 fL (7.4-10.4); Monocytes # (auto) 0.55 K/uL (0.11-0.59); Monocytes % (auto) 6.1 %; Neutrophils # (auto) 6.46 K/uL (1.4-6.5); Neutrophils % (auto) 71.2 %; Platelet Count 299 K/uL (130-400); RDW Coefficient of Variation 12.7 % (11.5-14.5); RDW Standard Deviation 42.8 fL (36.4-46.3); Red Blood Count 3.32 M/uL (4.7-6.1); White Blood Count 9.07 K/uL (4.8-10.8)
[2018-09-17 07:50] LABS: BUN Creatinine Ratio 18.3 (10-20); Creatinine Clr Calc Pharmacy 62.8 ml/min; Est GFR (Non-African American) 56.1; Potassium 3.7 mmol/L (3.5-5.1)
[2018-09-17 07:56] LABS: Ferritin 542.4 ng/ml (8-388)
[2018-09-17 07:58] LABS: Estimated Average Glucose 154 mg/dl
--- NOTE | 2018-09-17 08:02 | Urology Progress Note ---
Date of Service September 17, 2018 Assessment & Plan (1) Renal calculi: 68yo M with 3mm distal left ureteral stone, moderate hydro. bilateral renal stones. Pt spontaneously passed stone last evening with immediate resolution of pain. Stone visible in strainer - appears to be approx 3mm as indicated on imaging. Will send for analysis and allow for diet. Okay to discharge home with flomax, abx 3days (if indicated by primary team). Will arrange for outpatient f/u in 3-4 weeks with renal US to ensure resolution of hydronephrosis. Basic stone prevention discussed. Pt verbalizes understanding of plan of care. Subjective 68yo M with 3mm distal left ureteral stone. Pt doing well this AM. Passed stone spontaneously last evening, then able to have "great night's sleep". Pain has resolved. Denies LUTS, hematuria. Denies n/v/f/c. States he is hungry. Kidney function has returned to normal this AM. Review of Systems Review of Systems: Constitutional: Denies fever, chills, sweats, malaise Eyes: Denies problem reported ENMT: Denies dizziness Resp: Denies cough, Denies shortness of breath CV: Denies JVD GI: Denies nausea/vomiting : Denies suprapubic or flank pain, dysuria, urgency, frequency, hematuria MS: Denies swelling, stiffness Integ: Denies rash, erythema Neuro: Denies falls, weakness Psych: Denies behavior change Endo: Denies polyphagia, polydipsia Heme: Denies easy bleeding Physical Exam Constitutional: no acute distress Eyes: no nystagmus ENMT: Ears: no TM abnormality Neck: trachea midline Respiratory: no respiratory distress and does not use accessory muscles Cardiovascular: Vessels: no JVD Chest (Breasts): Chest: no mass Gastrointestinal (Abdomen): Inspection/Auscultation: abdomen not distended and no abdominal edema Percussion/Palpation: abdomen soft; abdomen nontender Musculoskeletal: Head/Neck/Chest: normocephalic and head atraumatic Skin: no rashes and no ulcers Neurologic: CN's II-XI intact bilaterally Psychiatric: Orientation: alert and oriented x 3 Lymphatic: no cervical or axillary lymphadenopathy Results & Data Vital Signs (Past 12 Hours) Vital Signs Temp Pulse Resp BP Pulse Ox 09/17/18 07:05 36.9 C 84 16 156/61 H 90 09/16/18 23:16 37.0 C 72 18 148/73 H 91 Laboratory Results Laboratory Results - last 48 hr 09/15/18 09/15/18 09/15/18 15:33 15:48 15:48 WBC 10.37 RBC 3.75 L Hgb 11.8 L Hct 33.9 L MCV 90.4 MCH 31.5 MCHC 34.8 RDW Std Deviation 41.8 RDW Coeff of [place] 12.6 Plt Count 318 MPV 8.9 Immature Gran % (Auto) 0.3 Neut % (Auto) 76.5 Lymph % (Auto) 12.5 [place] % (Auto) 9.5 Eos % (Auto) 1.1 Baso % (Auto) 0.1 Immature Gran # (Auto) 0.03 H Neut # (Auto) 7.94 H Lymph # (Auto) 1.30 [place] # (Auto) 0.98 H Eos # (Auto) 0.11 Baso # (Auto) 0.01 PT INR Sodium 138 Potassium Chloride 102 Carbon Dioxide 27 Anion Gap 9.0 BUN 25 H Creatinine 1.92 H Est Cr Clr Drug Dosing 42.0 Est GFR ( Amer) 40.6 Est GFR (Non-Af Amer) 35.0 BUN/Creatinine Ratio 13.0 Glucose 108 H POC Glucose Estimat Average Glucose Hemoglobin A1c Calcium 9.0 Iron TIBC Transferrin Transferrin % Sat Ferritin Total Bilirubin 1.1 H AST ALT 42 Alkaline Phosphatase 89 Total Protein 8.2 Albumin 3.4 Globulin 4.8 H Albumin/Globulin Ratio 0.7 L Lipase 66 L Vitamin B12 Folate Urine Color Yellow Urine Appearance Clear Urine pH 5.5 Ur Specific [place] 1.012 Urine Protein Negative Urine Glucose (UA) Negative Urine Ketones Negative Urine Blood Negative Urine Nitrite Negative Urine Bilirubin Negative Urine Urobilinogen Negative Ur Leukocyte Esterase Negative 09/15/18 09/15/18 09/15/18 15:48 20:19 23:50 WBC RBC Hgb Hct MCV MCH MCHC RDW Std Deviation RDW Coeff of [place] Plt Count MPV Immature Gran % (Auto) Neut % (Auto) Lymph % (Auto) [place] % (Auto) Eos % (Auto) Baso % (Auto) Immature Gran # (Auto) Neut # (Auto) Lymph # (Auto) [place] # (Auto) Eos # (Auto) Baso # (Auto) PT 10.3 INR 1.0 Sodium Potassium Chloride Carbon Dioxide Anion Gap BUN Creatinine Est Cr Clr Drug Dosing Est GFR ( Amer) Est GFR (Non-Af Amer) BUN/Creatinine Ratio Glucose POC Glucose 151 H Estimat Average Glucose Hemoglobin A1c Calcium Iron TIBC Transferrin Transferrin % Sat Ferritin Total Bilirubin AST ALT Alkaline Phosphatase Total Protein Albumin Globulin Albumin/Globulin Ratio Lipase Vitamin B12 Folate Urine Color Yellow Urine Appearance Clear Urine pH 5.0 Ur Specific [place] 1.016 Urine Protein Negative Urine Glucose (UA) Negative Urine Ketones Negative Urine Blood Negative Urine Nitrite Negative Urine Bilirubin Negative Urine Urobilinogen Negative Ur Leukocyte Esterase Negative 09/16/18 09/16/18 09/16/18 07:03 07:03 08:27 WBC 9.27 RBC 3.33 L Hgb 10.3 L Hct 30.2 L MCV 90.7 MCH 30.9 MCHC 34.1 RDW Std Deviation 42.8 RDW Coeff of [place] 12.9 Plt Count 277 MPV 8.7 Immature Gran % (Auto) 0.4 Neut % (Auto) 71.2 Lymph % (Auto) 17.9 [place] % (Auto) 8.6 Eos % (Auto) 1.6 Baso % (Auto) 0.3 Immature Gran # (Auto) 0.04 H Neut # (Auto) 6.59 H Lymph # (Auto) 1.66 [place] # (Auto) 0.80 H Eos # (Auto) 0.15 Baso # (Auto) 0.03 PT INR Sodium 138 Potassium 4.0 Chloride 105 Carbon Dioxide 27 Anion Gap 6.0 BUN 27 H Creatinine 1.80 H Est Cr Clr Drug Dosing 45.4 Est GFR ( Amer) 43.8 Est GFR (Non-Af Amer) 37.8 BUN/Creatinine Ratio 15.1 Glucose 95 POC Glucose 98 Estimat Average Glucose Hemoglobin A1c Calcium 8.0 L Iron TIBC Transferrin Transferrin % Sat Ferritin Total Bilirubin AST ALT Alkaline Phosphatase Total Protein Albumin Globulin Albumin/Globulin Ratio Lipase Vitamin B12 Folate Urine Color Urine Appearance Urine pH Ur Specific [place] Urine Protein Urine Glucose (UA) Urine Ketones Urine Blood Urine Nitrite Urine Bilirubin Urine Urobilinogen Ur Leukocyte Esterase 09/16/18 09/16/18 09/16/18 12:04 17:05 20:09 WBC RBC Hgb Hct MCV MCH MCHC RDW Std Deviation RDW Coeff of [place] Plt Count MPV Immature Gran % (Auto) Neut % (Auto) Lymph % (Auto) [place] % (Auto) Eos % (Auto) Baso % (Auto) Immature Gran # (Auto) Neut # (Auto) Lymph # (Auto) [place] # (Auto) Eos # (Auto) Baso # (Auto) PT INR Sodium Potassium Chloride Carbon Dioxide Anion Gap BUN Creatinine Est Cr Clr Drug Dosing Est GFR ( Amer) Est GFR (Non-Af Amer) BUN/Creatinine Ratio Glucose POC Glucose 108 H 120 H 125 H Estimat Average Glucose Hemoglobin A1c Calcium Iron TIBC Transferrin Transferrin % Sat Ferritin Total Bilirubin AST ALT Alkaline Phosphatase Total Protein Albumin Globulin Albumin/Globulin Ratio Lipase Vitamin B12 Folate Urine Color Urine Appearance Urine pH Ur Specific [place] Urine Protein Urine Glucose (UA) Urine Ketones Urine Blood Urine Nitrite Urine Bilirubin Urine Urobilinogen Ur Leukocyte Esterase 09/17/18 09/17/18 09/17/18 06:08 06:54 06:54 WBC 9.07 RBC 3.32 L Hgb 10.5 L Hct 30.4 L MCV 91.6 MCH 31.6 MCHC 34.5 RDW Std Deviation 42.8 RDW Coeff of [place] 12.7 Plt Count 299 MPV 8.5 Immature Gran % (Auto) 0.9 Neut % (Auto) 71.2 Lymph % (Auto) 19.1 [place] % (Auto) 6.1 Eos % (Auto) 2.5 Baso % (Auto) 0.2 Immature Gran # (Auto) 0.08 H Neut # (Auto) 6.46 Lymph # (Auto) 1.73 [place] # (Auto) 0.55 Eos # (Auto) 0.23 Baso # (Auto) 0.02 PT INR Sodium 140 Potassium 3.7 Chloride 108 H Carbon Dioxide 24 Anion Gap 8.0 BUN 24 H Creatinine 1.30 D Est Cr Clr Drug Dosing 62.8 Est GFR ( Amer) 65.0 Est GFR (Non-Af Amer) 56.1 BUN/Creatinine Ratio 18.3 Glucose 88 POC Glucose 93 Estimat Average Glucose Hemoglobin A1c Calcium 8.0 L Iron 44 TIBC 206 L Transferrin 173 L Transferrin % Sat 18 L Ferritin 542.4 H Total Bilirubin AST ALT Alkaline Phosphatase Total Protein Albumin Globulin Albumin/Globulin Ratio Lipase Vitamin B12 Folate Urine Color Urine Appearance Urine pH Ur Specific [place] Urine Protein Urine Glucose (UA) Urine Ketones Urine Blood Urine Nitrite Urine Bilirubin Urine Urobilinogen Ur Leukocyte Esterase 09/17/18 09/17/18 09/17/18 06:54 06:54 12:16 WBC RBC Hgb Hct MCV MCH MCHC RDW Std Deviation RDW Coeff of [place] Plt Count MPV Immature Gran % (Auto) Neut % (Auto) Lymph % (Auto) [place] % (Auto) Eos % (Auto) Baso % (Auto) Immature Gran # (Auto) Neut # (Auto) Lymph # (Auto) [place] # (Auto) Eos # (Auto) Baso # (Auto) PT INR Sodium Potassium Chloride Carbon Dioxide Anion Gap BUN Creatinine Est Cr Clr Drug Dosing Est GFR ( Amer) Est GFR (Non-Af Amer) BUN/Creatinine Ratio Glucose POC Glucose 118 H Estimat Average Glucose 154 Hemoglobin A1c 7.0 H Calcium Iron TIBC Transferrin Transferrin % Sat Ferritin Total Bilirubin AST ALT Alkaline Phosphatase Total Protein Albumin Globulin Albumin/Globulin Ratio Lipase Vitamin B12 442 Folate 20.93 Urine Color Urine Appearance Urine pH Ur Specific [place] Urine Protein Urine Glucose (UA) Urine Ketones Urine Blood Urine Nitrite Urine Bilirubin Urine Urobilinogen Ur Leukocyte Esterase
[2018-09-17 08:29] LABS: Folate (Folic Acid) 20.93 ng/ml (>5.38)
[2018-09-17] MEDS: TERAZOSIN HCL 1 MG CAP PO SCH (08:34)
[2018-09-17] MEDS: AMLODIPINE BESYLATE 5 MG TAB PO SCH (08:34)
[2018-09-17] MEDS: METOPROLOL TARTRATE 50 MG TAB PO SCH (08:35)
[2018-09-17] MEDS: TAMSULOSIN HCL 0.4 MG CAP PO SCH (08:35)
[2018-09-17] MEDS: ASCORBIC ACID 500 MG TAB PO SCH (08:35)
[2018-09-17] MEDS: cephALEXin 500 MG CAP PO SCH (08:35)
[2018-09-17] MEDS ORDERED: ATORVASTATIN 20 MG TAB PO SCH (09:00)
--- NOTE | 2018-09-17 13:15 | Discharge Summary ---
Date of Service September 17, 2018 Admission HPI Per Admitting Provider 68-year-old male with a history of hypertension and hyperlipidemia. 15 years ago he had a kidney stone that felt like this. He has had a left discomfort for nearly a week and was evaluated previously at [facility] several days ago. His symptoms have persisted and worsened and he comes to the [facility] ED for evaluation. Renal ultrasound reveals moderate left hydronephrosis and he has evidence of a distal left ureter stone with acute kidney injury. Creatinine 1.9. The ED physician has contacted urology for consultation. He will be placed on intravenous Unasyn due to the obstruction and hydronephrosis. He does not appear to be septic. Admission Exam Per Admitting Provider General-alert and oriented x3, no fevers, no chills HEENT-head atraumatic and normocephalic, TMs intact bilaterally, pupils equal and reactive to light, extraocular muscles intact Neck-no lymphadenopathy or thyromegaly, trachea midline Chest-clear to auscultation percussion. No rales wheezing or rhonchi Cardiac-regular rate and rhythm, normal S1 and S2, no murmurs Abdomen-normal bowel sounds, nontender, no hepatosplenomegaly Musculoskeletaltenderness in the left costovertebral angle area Extremities-no cyanosis, clubbing, or edema Neuro-cranial nerves II through XII intact, motor and sensory function within normal limits, strength symmetrical 5/5, no focal deficits Psych-normal affect, normal mood Principal Diagnosis Renal Colic Discharge Exam General: Resting comfortably HEENT: NC/AT; PERRLA with EOMI; [place] conjunctiva, MMM. No erythema of posterior pharynx Neck: Supple and nontender Cardiac: RRR Lungs: CTA bilaterally Abdomen: Bowel normoactive X 4; Nontender to palpation Extremities: Warm. No edema present Neuro: No focal weakness Skin: No rash Discharge Data Allergies Allergy/AdvReac Type Severity Reaction Status Date / Time ciprofloxacin [From Cipro] Allergy Intermediate Hives Verified 09/15/18 15:25 Consultations 09/15/18 17:34 ED Decision to Admit Stat 09/15/18 20:17 Consult Urology Routine Ordered Studies 09/15/18 15:18 US renal/blad retro comp Stat KUB Hospital Course (1) Renal calculi: Presented with renal colic; US with 5 mm distal left ureter stone at left UVJ. U/a was negative on admission. Strained all urine -- pt. passed stone on 09/16/18. Keflex for empiric coverage in setting of obstruction -- will complete 3 day course following discharge. IV fluids at 125 cc/hr; advanced to regular diet prior to discharge. Will d/c Flomax at discharge as he is already on an alpha-josé; continue Terazosin. Oxycodone and Morphine prn pain. Urology consulted, f/u in 3-4 weeks. (2) Hydronephrosis: Left sided, secondary to stone. (3) Acute kidney injury: Creatinine increased to 1.9 on admission, likely post renal related to stone. Level trended down with IV fluids and passage of stone. Can resume Metformin and Lisinopril at discharge. (4) BPH (benign prostatic hyperplasia): Flomax added this admission for stone; was already on Terazosin. Will d/c flomax at discharge. (5) Type 2 diabetes mellitus: Held home Metformin. A1C level was 7.0. SSI coverage as inpt; resume Metformin at discharge. (6) Hypertension: Continued Amlodipine, Terazosin and Metoprolol; resume Lisinopril at discharge. (7) HLD (hyperlipidemia): Continued statin as prescribed. (8) Anemia: Likely related to IV fluids, dilutional. (9) DVT prophylaxis: SCDs; held Lovenox for possible procedure. Stable for discharge to home on 09/17/18. Total Time Total Time Spent Total Time Spent (In Minutes): >30 minutes. Total Time Includes: Examination of the Patient, Discharge Planning, Medication Reconciliation, Communication With Other Providers and Other Discharge Plan Discharge Items Patient Disposition: Home - Self-Care Reason For Visit: LEFT URETERAL CALCULUS,LEFT HYDRONEPHROSIS,ACUTE K Discharge Diagnosis: Left ureter calculus, Left hydronephrosis Condition: Good Discharge Goals: Improve disease control, Improve function, Increase independ ence, Improve nutritional status and Prevent disease Activity: As commented below Exercise/Sports: Wait until after follow-up appointment Non-emergency contact: Primary Care Provider Call non-emergency contact if: you have any medication questions, your symptoms worsen, your pain is not controlled, your pain is worsening, your pain is unusual for you, your pain is concerning for you and you have a fever Follow-up/Referrals: Lyudmila Cano MD [Primary Care Provider] - Diet: Carb Consistent or DM2 Addtl Provider Instructions: 1. Left kidney stone * Please continue to drink plenty of fluids at home. * Please take Keflex 500 mg twice daily to complete a 3 day course. Prescriptions for new medications were sent to your pharmacy. * You will need to follow up with urology in 3-4 weeks as an outpatient. * Please schedule an appointment with your primary care provider in 7-10 days. Prescriptions: New cephalexin 500 mg Capsule 500 mg PO Q12 3 Days Qty: 6 RF: 0 Continued metformin 500 mg Tablet 500 mg PO QAM RF: 0 atorvastatin 20 mg Tablet 20 mg PO 2XWK RF: 0 terazosin 2 mg Capsule 2 mg PO QAM RF: 0 terazosin 2 mg Capsule 4 mg PO HS RF: 0 amlodipine 10 mg Tablet 10 mg PO QAM RF: 0 lisinopril 10 mg Tablet 10 mg PO QAM RF: 0 ascorbic acid (vitamin C) [Vitamin C] 500 mg Tablet,Chewable 500 mg PO QAM RF: 0 metoprolol tartrate 50 mg Tablet 100 mg PO BIDM RF: 0 Changed furosemide [Lasix] 20 mg Tablet 10 mg PO QAM PRN (Reason: swelling) Qty: 0 RF: 0 Stand-Alone Forms: [facility] Discharge Orders: Discharge Order (Routine); Ordered 09/17/18 Ordered By: Kavita Gracia Admission Data Admit Date/Time: 09/15/18 17:58 Attending Provider: Grace Sue Admit Provider: Afshin Castellanos Primary Care Provider: Lyudmila Cano Other Providers: Afshin Castellanos ; Anthony Gallegos ; Pradip Kamara ; Mello Talamantes I. ; Vinny Bucio ; Yolanda Taylor ; Livan Castillo II ; Latosha Ortega Service: Surgical Services Other Interventions: Discharge Summary Assessment (RN) Last Done: 09/17/18 14:10 Pending Studies at Discharge: No DC Date/Time DO NOT enter until pt leaves facility: 09/17/18 15:05 Supervising Physician Co-Signing Physician Notes PA Supervision Note: I personally saw and examined the patient. I verified all rodriguez points and agree with SARA Gracia with the following exceptions and/or additions: Patient doing very well, no pain or nausea. Stone has passed Renal function has improved Vitals reviewed Gen: AAOx3, NAD HEENT: Anicteric sclerae, EOMI CV: RRR no mgr nl S1S2 Pulm: CTAB no wcr Abd: +BS soft NT ND no masses or hernias Ext: No edema, 2+ DP pulses Skin: No rashes, warm/dry Neuro: Full strength throughout 60-year-old male here with left-sided ureterolithiasis and RICHARD, now all resolved -Follow-up with urology as an outpatient Stable for discharge
[2018-09-24 09:58] LABS: Component 2 DNR
== END 2018-09-17 15:05 | disposition home or self-care (01) | DRG 694 ==
LOC: ED 14:31 → SUATTDRO 17:58 → 3N 17:58
DX: E78.5 Hyperlipidemia, unspecified; N23 Unspecified renal colic; E11.9 Type 2 diabetes mellitus without complications; Z88.1 Allergy status to other antibiotic agents; I10 Essential (primary) hypertension; Z79.899 Other long term (current) drug therapy; N13.2 Hydronephrosis with renal and ureteral calculous obstruction; D64.89 Other specified anemias; N40.0 Benign prostatic hyperplasia without lower urinary tract symptoms; Z79.84 Long term (current) use of oral hypoglycemic drugs; N17.8 Other acute kidney failure; Z87.442 Personal history of urinary calculi